=== PATIENT | male | born 1960 | race Caucasian/White ===

== ENCOUNTER 2016-11-10 06:19 | Emergency (ER) | payer OTHER ==
[~2016-11-10] VITALS: Ht 182.9 cm; Wt 83.4 kg
[2016-11-10] MEDS ORDERED: ASPIRIN 81 MG CHEW (CHILDREN'S ASA) PO ONE (06:35)
[2016-11-10] MEDS ORDERED: morphine INJ 4 MG/ML 1 ML SYRINGE IV PRN (06:35)
[2016-11-10] MEDS ORDERED: SODIUM CHLORIDE FLUSH 3 ML SYR IV PRN (06:35)
[2016-11-10] MEDS ORDERED: SODIUM CHLORIDE 250 ML IV PRN (06:35)
[2016-11-10] MEDS ORDERED: SODIUM CHLORIDE FLUSH 10 ML SYR IV PRN (06:35)
[2016-11-10] MEDS ORDERED: ONDANSETRON 2 MG/ML (Z0FRAN) 2 ML VIAL IV ONE (06:35)
--- NOTE | 2016-11-10 06:44 | NUR ---
Report to Shelly Delacruz RN for continued care of pt
[2016-11-10 06:46] LABS: BASOPHILS % (AUTO) 1 % (0-2); EOSINOPHILS # (AUTO) 0.4 10^3uL; EOSINOPHILS % (AUTO) 9 % (0-4); LYMPHOCYTES # (AUTO) 1.3 X10^3; MEAN CORPUSCULAR HEMOGLOBIN 31.2 PG (26.0-34.0); MEAN CORPUSCULAR HGB CONC 36.2 g/dL (31.0-37.0); MEAN CORPUSCULAR VOLUME 86 FL (80-100); MEAN PLATELET VOLUME 8.9 FL (6.0-9.5); MONOCYTES # (AUTO) 0.6 X10^3; MONOCYTES % (AUTO) 12 % (3-11); NEUTROPHILS # (AUTO) 2.4 X10^3; NEUTROPHILS % (AUTO) 51 % (51-67); PLATELET COUNT 244 10^3uL (150-450); WHITE BLOOD COUNT 4.75 10^3uL (4.0-11.0)
[2016-11-10 06:55] LABS: ALBUMIN 4.1 g/dL (3.4-5.0); ALKALINE PHOSPHATASE 85 U/L (38-126); ANION GAP 14.1 MEQ/L (3-15); BUN/CREATININE RATIO 19 (10-20); CALCULATED IONIZED CALCIUM 3.9 mg/dL (3.8-4.6); CREATINE KINASE 45 U/L (55-170)
[2016-11-10] MEDS: NITROGLYCERIN SUBLINGUAL 0.4 MG (NITROQUICK) TABLET SL PRN ×2 (06:55→07:11)
--- NOTE | 2016-11-10 07:23 | NUR ---
talking with dale
[2016-11-10] MEDS ORDERED: NITROGLYCERIN DRIP 25 MG/D5W 250 ML IV PRN (07:25)
[2016-11-10 07:33] VITALS: BP 97/56
--- NOTE | 2016-11-10 07:38 | NUR ---
NITRO STARTED AT 5 MCG/MIN
--- NOTE | 2016-11-10 07:48 | NUR ---
RATES PAIN AT [facility]
--- NOTE | 2016-11-10 07:49 | NUR ---
ATTEMPTED TO CALL [facility] WITHOUT AN ANSWER.
--- NOTE | 2016-11-10 07:50 | NUR ---
NITRO INCREASED TO 10 MCG/MIN
--- NOTE | 2016-11-10 07:50 | NUR ---
pt placed on 6ml/hr nitro drip
== END 2016-11-10 07:55 | disposition short-term general hospital (02) ==
LOC: ED 06:22
DX: R07.9 Chest pain, unspecified (principal)
CPT/HCPCS: 36415; 71010; 80053; 82550; 82553; 83880; 84484; 85025; 85610; 85730; 93005; 99285; J7030; 93010

== ENCOUNTER → 2016-11-10 | Outpatient (CLI) | payer OTHER | LOC: EMS 08:00 | PROVIDERS: ATTEND Emergency Medicine | DX: R07.89 Other chest pain (principal) ==